=== PATIENT | female | born 1980 | race Caucasian/White ===

== ENCOUNTER 2019-06-19 17:46 | Emergency (ER) | payer SELFPAY ==
[~2019-06-19] VITALS: Ht 162.6 cm; Wt 65.8 kg
--- NOTE | 2019-06-19 18:35 | NUR ---
Dr Zaragoza is at bedside evaluating the patient.
[2019-06-19] MEDS ORDERED: IV NORMAL SALINE 1000 ML BAG IV ONE (18:45)
--- NOTE | 2019-06-19 18:45 | NUR ---
1 liter N/S IV started per MD order. Patient tolerating well. Will continue to monitor
--- NOTE | 2019-06-19 19:00 | NUR ---
1st liter of IV N/S infused. Patient tolerated well. Starting 2nd liter of IV N/S infusion per MD order. Will continue to monitor
--- NOTE | 2019-06-19 19:05 | NUR ---
Patient in bed sleeping but easily arousable. Breathing even and unlabored. NAD noted
--- NOTE | 2019-06-19 19:19 | NUR ---
Assumed care from [facility] RN
--- NOTE | 2019-06-19 22:28 | NUR ---
Patient in bed sleeping but easily arousable. responds when name is called. Breathing even and unlabored. NAD noted
--- NOTE | 2019-06-19 23:15 | NUR ---
Patient awake and alert. Oriented patient to surroundings and time. Patient does not recall events after arriving to [facility]. IV removed by patient. Catheter intact and site benign. Pressure and 4x4 gauze applied to site. Speech is clear and able to make needs known / follow commadns. informed patient that she needs to find someone to take her home. patient in agreement. no further concerns at this time
--- NOTE | 2019-06-20 00:16 | NUR ---
Patient discharged to home in stable conditon. Written and verbal after care instructions given. Patient verbalizes understanding of instructions. Patient ambulating with steady gait. Patient A&O x4. NAD noted
[2019-06-20 00:17] VITALS: BP 94/60
== END 2019-06-20 00:16 | disposition home or self-care (01) ==
LOC: ER 17:46
DX: F10.129 Alcohol abuse with intoxication, unspecified (principal); Y90.8 Blood alcohol level of 240 mg/100 ml or more
CPT/HCPCS: 36415; 99283; G0480; A4663; J7030